=== PATIENT | female | born 1980 | race Caucasian/White ===

== ENCOUNTER 2016-08-18 12:21 | Inpatient (IN) | payer OTHER ==
[~2016-08-18] VITALS: Ht 162.6 cm; Wt 78.9 kg
[2016-08-18] MEDS ORDERED: Lactated Ringer's 1,000 ML IV PRN (12:42)
[2016-08-18] MEDS ORDERED: Hemorrhage Kit, Post Partum XX ONE ×2 (12:45→16:20)
[2016-08-18] MEDS ORDERED: Oxytocin 30 Units/500 mL LR 30 UNITS in IV Premix 1 EACH IV PRN ×2 (12:45→16:20)
[2016-08-18] MEDS ORDERED: Sodium Chloride LOK Flush 10 mL Syringe IVFLUSH PRN (12:45)
[2016-08-18] MEDS ORDERED: Oxytocin 10 Unit/mL Inj IM PRN ×2 (12:45→16:20)
[2016-08-18] MEDS ORDERED: Carboprost 250 mCg/mL Inj IM PRN ×2 (12:45→16:20)
[2016-08-18] MEDS ORDERED: Methylergonovine 0.2 mg/mL Inj IM PRN ×2 (12:45→16:20)
[2016-08-18 13:24] LABS: Mean Corpuscular Hemoglobin 30.8 pg (27.0-35.0); Mean Corpuscular Volume 91.1 fL (81-100)
[2016-08-18] MEDS ORDERED: PREN1TAB25 PO (13:36)
[2016-08-18] MEDS ORDERED: Lactated Ringer's 1,000 ML IV SCH (16:18)
[2016-08-18] MEDS ORDERED: HYDROcodone-APAP 5-325 mg Tablet PO PRN (16:20)
[2016-08-18] MEDS ORDERED: Witch Hazel-Glycerin Pads TOPICAL PRN (16:20)
[2016-08-18] MEDS ORDERED: LANOlin HPA 7 Gm Ointment TOPICAL PRN (16:20)
[2016-08-18] MEDS ORDERED: Benzocaine (Dermoplast) 20% 60 Gm Spray TOPICAL PRN (16:20)
--- NOTE | 2016-08-18 22:45 | PROCED ---
[address] [address] PROCEDURE NOTE PATIENT: SHANNAN CASTILLO : 1980 MR#: [id number] ADMIT: 08/18/2016 JOB ID: [id number] DATE OF SERVICE: 08/18/2016 POSTOPERATIVE DIAGNOSIS(ES): PREOPERATIVE DIAGNOSIS(ES): SURGEON: Moises Glez MD. On August 18, 2016 at 15:49 p.m. this 36-year-old, G2, P0 female at 40 weeks and 4 days estimated gestational age delivered a vigorous male with Apgars of 8 and 9 by normal vaginal delivery. The patient presented in labor and progressed rapidly on her own to complete over the course of the afternoon. She required no additional agents including no epidural. She reached complete and pushed for about 45 minutes. She was a very effective pusher. In the end, the heart tracing was seen to have terminal decels into the 60s and 70s that were repetitive. At this point, the 's vertex had come mostly around the pubic bone and the skin of the perineum was the only thing holding the baby back. I injected local anesthesia and made an episiotomy that was modest. The immediately delivered and was seen to have great tone. The episiotomy incision did not extend. It was noted to be a second degree midline perineal wound. The patient had no other vaginal or perineal wounds. Her placenta delivered approximately 5 minutes later spontaneously and intact. She had several different gushes of blood loss which amounted to about 600 mL total. For this reason, Pitocin was started at 350 cc an hour and seemed to be effective. The patient's uterus was then found to be firm and her cervix was intact. There were no other complications of this delivery. Counts were correct x2. The patient was in excellent condition following delivery.
[2016-08-19 07:23] LABS: Mean Corpuscular Hemoglobin 30.5 pg (27.0-35.0); Mean Corpuscular Volume 91.7 fL (81-100)
--- NOTE | 2016-08-19 09:08 | PCM.DC.OB ---
Obstetrical Discharge Summary Date of Service Aug 19, 2016 Date of hospital admission Aug 18, 2016 at 12:49 Date of Discharge: Aug 19, 2016 Providers Admitting Physician: Moises Glez MD Primary Care Physician: Aster Wolff Attending Physician: Moises Glez MD Problems: (1) Status post normal vaginal delivery Status: Acute ICD Code: [id number] Consultations None Invasive procedures NVD Date of Procedure: Aug 18, 2016 Hospital Course: Patient presented in labor. Progressed and delivered in excellent fashion. Recovered well. Vit#96/Ferrous Fum/FA ( Tablet) 1 Each Tablet 1 EACH PO DAILY ( Reported) Last Taken: Unknown Dose on 08/18/16 0700 Follow-up plan see me in six weeks. Discharge Diet: No restrictions Discharge Activity-General: Pelvic Rest for 6 weeks, Try not to overdue, Be up and about, Balance rest and activity, Activity as energy allows, No lifting >15 pounds for 2 weeks copies to: Thu Mcguire ARNP Benson, David B MD Aug 19, 2016 09:08
--- NOTE | 2016-08-19 09:10 | PCM.DIOB ---
Obstetrical Disch Instruction Date of Service: Aug 19, 2016 Dates of Hospitalization Date of Hospital Admission Aug 18, 2016 at 12:49 Providers Admitting Physician: Moises Glez MD Primary Care Physician: Aster Wolff Attending Physician: Moises Glez MD Discharge Diagnosis Problems: (1) Status post normal vaginal delivery Status: Acute ICD Code: [id number] Diet Discharge Diet: No restrictions Activity Discharge Activity-General: Pelvic Rest for 6 weeks, Balance rest and activity , Activity as pain allows, No lifting >15 pounds for 2 weeks Dressing and Incisional Care Hygiene: May shower, Perineal care, Sitz bath, Dermoplast spray, Witch Marcelle pads Follow Up Plan Follow-up Provider (F9): Moises Glez MD Mid-level Provider (F9): Thu Mcguire ARNP Follow-up appointment: Weeks (6) Call your provider for: Fever or Chills, Heavy vaginal bleeding, Excessive constipation, Vaginal discomfort, Red painful breasts Moises Glez MD Aug 19, 2016 09:10
[2016-08-19 11:07] VITALS: BP 90/56; PULSE 71; RESP 16
== END 2016-08-19 13:00 | disposition home or self-care (01) | DRG 775 ==
LOC: FBCO 12:21 → FBC 12:49
PROVIDERS: ADMIT Family Medicine; ATTEND Family Medicine
PROC: 0W8NXZZ Division of Female Perineum, External Approach (ICD-10-PCS; principal; 2016-08-18)
DX: O76 Abnormality in fetal heart rate and rhythm complicating labor and delivery (principal); Z37.0 Single live birth; O69.81X0 Labor and delivery complicated by cord around neck, without compression, not applicable or unspecified; Z3A.40 40 weeks gestation of pregnancy